=== PATIENT | female | born 2000 | race Caucasian/White ===

== ENCOUNTER 2023-07-09 09:35 | Emergency (ER) | payer OTHER ==
[~2023-07-09] VITALS: Ht 162.6 cm; Wt 68.0 kg
[2023-07-09 09:37] VITALS: BP 150/85; PULSE 115; RESP 18; TEMP 97.6; O2SAT 100
[2023-07-09] MEDS ORDERED: IBUPROFEN 400 MG TAB PO ONE (10:10)
[2023-07-09 10:40] VITALS: BP 120/70; PULSE 93; RESP 18; TEMP 97.6; O2SAT 98
== END 2023-07-09 10:38 | disposition home or self-care (01) ==
LOC: MED 09:35
DX: S13.4XXA Sprain of ligaments of cervical spine, initial encounter (principal); S23.3XXA Sprain of ligaments of thoracic spine, initial encounter; R51.9 Headache, unspecified; Z90.49 Acquired absence of other specified parts of digestive tract; Z98.890 Other specified postprocedural states; V89.2XXA Person injured in unspecified motor-vehicle accident, traffic, initial encounter; Y93.89 Activity, other specified; Y92.410 Unspecified street and highway as the place of occurrence of the external cause; Y99.8 Other external cause status
CPT/HCPCS: 99283